=== PATIENT | male | born 2000 | race Caucasian/White ===

== ENCOUNTER 2020-05-21 22:05 | Emergency (ER) | payer OTHER ==
[2020-05-21] MEDS ORDERED: Dexamethasone 10 MG/ML VIAL ONE (23:00)
[2020-05-21] MEDS ORDERED: diphenhydrAMINE 50 MG/ML VIAL ONE (23:00)
== END 2020-05-21 23:15 | disposition home or self-care (01) ==
LOC: CSHERS 22:05
DX: L30.9 Dermatitis, unspecified (principal)
CPT/HCPCS: 96372; 99282; J1100; J1200